=== PATIENT | female | born 1995 ===

== ENCOUNTER 2023-05-19 14:50 | Inpatient (IN) | payer SELFPAY ==
[~2023-05-19] VITALS: Ht 154.9 cm; Wt 81.4 kg
[2023-05-20] VITALS (35 sets, daily range): BP systolic 129–169; BP diastolic 81–108; PULSE 49–75; TEMP 97.6–98.8
--- NOTE | 2023-05-20 06:45 | NUR ---
PT ORIENTED TO ROOM AND CHANGED INTO GOWN. VS ASSESSED BP 152/103. PT REPORTS ITCHING ALL OVER BODY. MONITORS APPLIED [facility] 1 TRACING. PT IS MARTINIQUAIS SPEAKING, ASSEMBLER ENGINE IS BEING USED. PER PT NO LOF OR VB. SHE HAS NOT BEEN FEELING ANY CX. FOB PRESENT.
--- NOTE | 2023-05-20 07:10 | NUR ---
DR ROUSE ON UNIT AND AT BEDSIDE. OB ULTRASOUND USED TO VERIFY VERTEX PRESENTAION. HE IS MONITORING PT BP AT THIS TIME.
[2023-05-20] MEDS ORDERED: PRENATAL TABLET PO (07:52)
[2023-05-20 08:17] LABS: BASO % 0.3 % (0.0-2.0); EOS # 0.2 K/mm3 (0.0-0.7); EOS % 2.4 % (0.0-4.0); GRAN # 3.6 K/mm3 (1.4-6.5); GRAN % 56.4 % (42.2-75.2); HEMATOCRIT 33.8 % (37.0-47.0); HEMOGLOBIN 11.9 g/dl (12.5-16.0); LYMPH # 1.9 K/mm3 (1.2-3.4); MEAN CELL VOLUME 89 fl (80.0-100.0); MEAN CORPUSCULAR HEMOGLOBIN 31 pg (27-31); MEAN CORPUSCULAR HGB CONC 35 g/dl (33.0-37.0); MONO # 0.7 K/mm3 (0.1-0.6); MONO % 10.3 % (1.7-9.3); PLATELET COUNT 229 K/mm3 (130-400); RED BLOOD COUNT 3.79 M/mm3 (4.10-5.30); REDCELL DISTRIBUTION WIDTH-CV 13.3 % (11.5-14.5)
[2023-05-20 08:36] LABS: ALBUMIN 2.5 gm/dL (3.5-5.0); BILIRUBIN,TOTAL 0.2 mg/dL (0.2-1.2); CALCIUM 8.7 mg/dL (8.4-10.2); CREATININE, serum 0.6 mg/dL (0.57-1.11); TOTAL PROTEIN 5.8 gm/dL (6.2-8.1)
--- NOTE | 2023-05-20 08:36 | NUR ---
DR ROUSE ON UNIT AND AT BEDSIDE. SVE /-3. AROM CLEAR FLUID. PT REPOSTIONED TO SEMIFOWLERS. FHT CATAGORY 1 TRACING.
--- NOTE | 2023-05-20 10:30 | NUR ---
DIFFICULTY TRACING PT'S CX. AT 1023 FHT'S APPEARED TO DECEL FROM 125 BASELINE TO 110 FOR 4-5 MINUTES. PT WAS REPOSTIONED TO WEDGE RIGHT AT 1029 CAUSING A VARIABLE, FHT THEN RETURNED TO BASELINE AND REMAINED THEIR WITH ACCELS.
--- NOTE | 2023-05-20 12:15 | NUR ---
PT WAS FEELING A LOT OF BACK LABOR AND REQUESTED AN EPIDURAL. WHILE WE WAITED FOR ANESTHESIA PT LABORED IN THE HANDS AND KNEES POSITION. THIS MADE TRACING FHT AND CX DIFFICULT. THIS RN REMAINED WITH PT AND LISTENED TO FHT WICH WHERE IN THE 120'S AND CX EVERY 2-4 MINUTES LASTING 60-90 SECONDS.
--- NOTE | 2023-05-20 13:09 | NUR ---
PT REQUESTED EPIDURAL VIA THE BOOTH SUPERVISOR. NAIF WAS CALLED AT 1211. NAIF HERE ON UNIT AT 1225. NAIF AT BEDSIDE 1230. PT WAS REPOSITIONED TO SITTING, BP AND O2 MONITORS APPLIED. FLUID BOLUS STARTED. TEST DOSE AT 1251. PT TOLERATED WELL. REPOSITIONED TO SUPINE WEDGED LEFT. WILL CONTINUE TO MONITOR VS. FHT DURING PROCEEDURE DID NOT TRACE WELL, BUT PER THIS RN STAYED IN THE 110-120'S OVERALL.
--- NOTE | 2023-05-20 13:40 | NUR ---
1324- PT COMPLETE. DR ROUSE CALLED. 1336- DR ROUSE AT BEDSIDE. 1340- SPONTANEOUS OF A VIABLE FEMALE INFANT DELIVERED BY DR ROUSE. INFANT HAD NUCHAL X1. BABY WAS SUCTIONED BY DR AND PLACED SKIN TO SKIN WITH MOM. NURSERY NURSE DINESH TOOK OVER CARE OF BABY. MOM CUT THE CORD. 1344- SPONTANEOUS DELIVERY OF PLACENTA. NO TEARING NOTED BY DR ROUSE. EBL 50. PT CLEANED UP AND REPOSITIONED. PITOCIN STARTED PER PROTICAL.
[2023-05-21 03:15] VITALS: BP 140/88; PULSE 64; TEMP 98.1
[2023-05-21 08:30] VITALS: BP 133/88; PULSE 73; TEMP 98.6
[2023-05-21] MEDS ORDERED: IBU600 MG PO (11:40)
[2023-05-21] MEDS ORDERED: TYLENOL 500MG500 MG PO (11:41)
[2023-05-21 17:00] VITALS: BP 135/86; PULSE 82; TEMP 98
[2023-05-21 21:15] VITALS: BP 139/99; PULSE 75; TEMP 98.2
[2023-05-22 08:30] VITALS: BP 134/86; PULSE 66; TEMP 98.2
--- NOTE | 2023-05-22 08:30 | NUR ---
Assessment and plan of care reviewed with pt using a metal furnace operator.
--- NOTE | 2023-05-22 10:30 | NUR ---
Using a transport truck driver discharge instructions and follow up care reviewed with pt and at the bedside. Both verbalized an understanding, agreed with the plan and states no questions or concerns at this time.
== END 2023-05-22 12:00 | disposition home or self-care (01) | DRG 807 ==
LOC: OB 05-20 06:31 → LDR 05-20 06:31 → OB 05-20 14:50
PROVIDERS: ADMIT Obstetrics & Gynecology
PROC: 10E0XZZ Delivery of Products of Conception, External Approach (ICD-10-PCS; principal; 2023-05-20)
PROC: 3E033VJ Introduction of Other Hormone into Peripheral Vein, Percutaneous Approach (ICD-10-PCS; 2023-05-20)
PROC: 10907ZC Drainage of Amniotic Fluid, Therapeutic from Products of Conception, Via Natural or Artificial Opening (ICD-10-PCS; 2023-05-20)
DX: O14.04 Mild to moderate pre-eclampsia, complicating childbirth (principal); Z37.0 Single live birth; Z3A.38 38 weeks gestation of pregnancy; O26.643 Intrahepatic cholestasis of pregnancy, third trimester; O16.4 Unspecified maternal hypertension, complicating childbirth; K76.89 Other specified diseases of liver; E78.79 Other disorders of bile acid and cholesterol metabolism; O69.81X0 Labor and delivery complicated by cord around neck, without compression, not applicable or unspecified
CPT/HCPCS: J2590; J2795; J7120